=== PATIENT | male | born 1965 | race Caucasian/White ===

== ENCOUNTER → 2018-02-08 07:33 | Outpatient (CLI) | payer MEDICAID, SELFPAY ==
[2018-02-08 08:09] LABS: Abs Immature Grans 0.01 k/cumm (0.0-0.09); Absolute Basophil Count 0.02 k/cumm (0.0-0.2); Absolute Lymphocyte Count 3.34 k/cumm (1.2-3.4); Absolute Monocyte Count 0.95 k/cumm (0.11-0.7); Absolute Neutrophil Count 4.66 k/cumm (1.2-6.7); Basophils % 0.2; Eosinophils % 4.3; HCT 35.4 % (40.0-50.0); HGB 12.5 g/dL (13.5-17.5); Immature Grans % 0.1; Lymphocytes % 35.6; Mean Corp. HGB Concentration 35.3 g/dL (32.0-36.0); Mean Corpuscular Hemoglobin 33.1 pg (27.0-33.0); Mean Corpuscular Volume 93.7 fL (80-95); Mean Platelet Volume 10.8 fL (8.0-11.0); Monocytes % 10.1; Neutrophils % 49.7; Platelet Count 287 x1000/uL (130-400); RBC 3.78 m/cumm (4.50-6.00); RBC Distribution Width 13.4 % (11.8-14.1); White Blood Cell Count 9.38 k/cumm (4.4-10.8)
[2018-02-08 08:19] LABS: VALPROIC ACID 32.3 ug/mL (50-100)
[2018-02-08 09:01] LABS: ALT 26 U/L (12-78); AST 22 U/L (15-37); Albumin 3.7 g/dL (3.4-5.0); Alkaline Phosphatase 92 U/L (46-116); BUN 14 mg/dL (7-18); Bilirubin, Total 0.5 mg/dL (0.2-1.0); CREATININE 0.96 mg/dL (0.70-1.30); Calcium 8.6 mg/dL (8.5-10.1); Chloride 102 mmol/L (98-107); Glucose 123 mg/dL (70-100); Potassium 3.7 mmol/L (3.5-5.1); Sodium 138 mmol/L (136-145); TSH 1.02 uIU/mL (0.358-3.74); Total Protein 6.7 g/dL (6.4-8.2)
== END ==
PROVIDERS: Dermatology; PCP Nurse Practitioner Family; Visit Provider Nurse Practitioner Psychiatric/Mental Health
DX: G62.9 Polyneuropathy, unspecified (principal); T78.40XA Allergy, unspecified, initial encounter; Z85.038 Personal history of other malignant neoplasm of large intestine; F10.10 Alcohol abuse, uncomplicated
CPT/HCPCS: 36415; 80053; 80164; 84443; 85025

== ENCOUNTER → 2018-02-14 09:04 | Outpatient (REF) | payer MEDICAID, SELFPAY ==
[2018-02-17 16:21] LABS: Coproporphyrin, Tetra 329 nmol/24h (<=230); Urine Volume 1825 mL; Uroporphyrin, Octa 30 nmol/24h (<=30)
== END ==
LOC: LBN 09:04
PROVIDERS: PCP Nurse Practitioner Family; Visit Provider Dermatology
DX: T78.40XA Allergy, unspecified, initial encounter (principal); Z85.038 Personal history of other malignant neoplasm of large intestine; G62.9 Polyneuropathy, unspecified
CPT/HCPCS: 81050; 84110; 84120

== ENCOUNTER 2018-03-31 19:02 | Outpatient (REF) | payer MEDICAID, SELFPAY ==
[2018-03-31 20:02] LABS: BUN 19 mg/dL (7-18); Calcium 9.1 mg/dL (8.5-10.1); Chloride 103 mmol/L (98-107); Glucose 106 mg/dL (70-100); Potassium 4.5 mmol/L (3.5-5.1); Sodium 139 mmol/L (136-145)
== END 2018-03-31 19:22 ==
LOC: NCHCN 19:02
PROVIDERS: PCP Nurse Practitioner Family; Visit Provider Nurse Practitioner Family
DX: R25.2 Cramp and spasm (principal); M51.17 Intervertebral disc disorders with radiculopathy, lumbosacral region; G43.919 Migraine, unspecified, intractable, without status migrainosus; M54.9 Dorsalgia, unspecified
CPT/HCPCS: 80048

== ENCOUNTER 2018-04-12 19:06 | Outpatient (REF) | payer MEDICAID, SELFPAY ==
[2018-04-12 20:03] LABS: Absolute Basophil Count 0.04 k/cumm (0.0-0.2); Absolute Eosinophil Count 0.31 k/cumm (0.0-0.7); Absolute Lymphocyte Count 2.14 k/cumm (1.2-3.4); Absolute Monocyte Count 0.64 k/cumm (0.11-0.7); Basophils % 0.8; Eosinophils % 5.8; HCT 35.6 % (40.0-50.0); HGB 12.7 g/dL (13.5-17.5); Lymphocytes % 40.2; Mean Corp. HGB Concentration 35.7 g/dL (32.0-36.0); Mean Corpuscular Hemoglobin 33.2 pg (27.0-33.0); Mean Corpuscular Volume 93.2 fL (80-95); Mean Platelet Volume 11.4 fL (8.0-11.0); Neutrophils % 41.2; Platelet Count 321 x1000/uL (130-400); RBC 3.82 m/cumm (4.50-6.00); RBC Distribution Width 12.7 % (11.8-14.1); White Blood Cell Count 5.33 k/cumm (4.4-10.8)
[2018-04-12 20:21] LABS: ALT 19 U/L (12-78); AST 16 U/L (15-37); Albumin 3.8 g/dL (3.4-5.0); Alkaline Phosphatase 111 U/L (46-116); Anion Gap 8.6 mmol/L (3-11); BUN 14 mg/dL (7-18); Bilirubin, Total 0.3 mg/dL (0.2-1.0); CO2 26.4 mmol/L (21.0-32.0); CREATININE 0.74 mg/dL (0.70-1.30); Calcium 8.9 mg/dL (8.5-10.1); Chloride 101 mmol/L (98-107); Glucose 95 mg/dL (70-100); Potassium 4.7 mmol/L (3.5-5.1); Sodium 136 mmol/L (136-145)
== END 2018-04-12 19:26 ==
LOC: NCHCN 19:06
PROVIDERS: PCP Nurse Practitioner Family; Visit Provider Nurse Practitioner Family
DX: R11.2 Nausea with vomiting, unspecified (principal)
CPT/HCPCS: 80053; 80164; 85025

== ENCOUNTER 2018-04-17 14:43 | Outpatient (CLI) | payer MEDICAID, SELFPAY ==
[2018-04-17 15:12] LABS: Abs Immature Grans 0.01 k/cumm (0.0-0.09); Absolute Basophil Count 0.04 k/cumm (0.0-0.2); Absolute Lymphocyte Count 2.36 k/cumm (1.2-3.4); Absolute Monocyte Count 0.57 k/cumm (0.11-0.7); Absolute Neutrophil Count 3.26 k/cumm (1.2-6.7); Basophils % 0.6; Eosinophils % 3.1; HCT 38.9 % (40.0-50.0); HGB 13.9 g/dL (13.5-17.5); Immature Grans % 0.2; Lymphocytes % 36.6; Mean Corp. HGB Concentration 35.7 g/dL (32.0-36.0); Mean Corpuscular Hemoglobin 32.9 pg (27.0-33.0); Mean Platelet Volume 10.2 fL (8.0-11.0); Monocytes % 8.9; Neutrophils % 50.6; Platelet Count 292 x1000/uL (130-400); RBC 4.23 m/cumm (4.50-6.00); RBC Distribution Width 12.6 % (11.8-14.1); White Blood Cell Count 6.44 k/cumm (4.4-10.8)
[2018-04-17 16:17] LABS: Iron 52 ug/dL (50-175); Total Iron Binding Capacity 263 ug/dL (250-450); Transferrin Sat 20 % (20-55)
[2018-04-17 16:44] LABS: Bilirubin, Total 0.4 mg/dL (0.2-1.0); Ferritin 55 ng/mL (8-388)
[2018-04-17 16:56] LABS: LDH 176 U/L (85-227)
[2018-04-18 11:11] LABS: Haptoglobin 142 mg/dL (32-197)
== END 2018-04-17 15:03 ==
PROVIDERS: PCP Nurse Practitioner Family; Visit Provider Nurse Practitioner Family
DX: R89.9 Unspecified abnormal finding in specimens from other organs, systems and tissues (principal)
CPT/HCPCS: 36415; 85027; 82247; 82728; 83010; 83540; 83550; 83615; 85025

== ENCOUNTER 2018-12-25 02:47 | Outpatient (CLI) | payer MEDICAID, SELFPAY | END 2018-12-25 03:07 | PROVIDERS: PCP Nurse Practitioner Family; Visit Provider Nurse Practitioner Family | DX: F90.2 Attention-deficit hyperactivity disorder, combined type (principal); Z79.899 Other long term (current) drug therapy; I49.3 Ventricular premature depolarization | CPT/HCPCS: 93005; 93010 ==

== ENCOUNTER 2019-03-15 10:38 | Outpatient (REF) | payer MEDICAID, SELFPAY ==
[2019-03-15 22:00] LABS: Abs Immature Grans 0.02 k/cumm (0.0-0.09); Absolute Basophil Count 0.05 k/cumm (0.0-0.2); Absolute Eosinophil Count 0.77 k/cumm (0.0-0.7); Absolute Lymphocyte Count 2.32 k/cumm (1.2-3.4); Absolute Monocyte Count 0.73 k/cumm (0.11-0.7); Basophils % 0.5; Eosinophils % 7.1; HCT 39.3 % (40.0-50.0); HGB 13.5 g/dL (13.5-17.5); Immature Grans % 0.2; Lymphocytes % 21.3; Mean Corp. HGB Concentration 34.4 g/dL (32.0-36.0); Mean Corpuscular Volume 93.1 fL (80-95); Mean Platelet Volume 11.4 fL (8.0-11.0); Monocytes % 6.7; Neutrophils % 64.2; Platelet Count 327 x1000/uL (130-400); RBC 4.22 m/cumm (4.50-6.00); RBC Distribution Width 12.7 % (11.8-14.1); White Blood Cell Count 10.89 k/cumm (4.4-10.8)
[2019-03-15 22:04] LABS: Absolute Neutrophil Count 6.99 k/cumm (1.2-6.7)
[2019-03-15 22:12] LABS: Iron 79 ug/dL (50-175)
[2019-03-15 22:30] LABS: Anion Gap 7.3 mmol/L (3-11); BUN 17 mg/dL (7-18); CO2 27.7 mmol/L (21.0-32.0); CREATININE 0.91 mg/dL (0.70-1.30); Calcium 9.5 mg/dL (8.5-10.1); Chloride 103 mmol/L (98-107); Ferritin 55 ng/mL (8-388); Glucose 77 mg/dL (70-100); Magnesium 2.1 mg/dL (1.8-2.4); Potassium 4.9 mmol/L (3.5-5.1); Sodium 138 mmol/L (136-145)
== END 2019-03-15 10:58 ==
LOC: NCHCN 10:38
PROVIDERS: PCP Nurse Practitioner Family; Visit Provider Nurse Practitioner Family
DX: R89.9 Unspecified abnormal finding in specimens from other organs, systems and tissues (principal); R25.2 Cramp and spasm; G47.00 Insomnia, unspecified; G47.33 Obstructive sleep apnea (adult) (pediatric)
CPT/HCPCS: 80048; 82728; 83540; 83735; 85025

== ENCOUNTER 2019-05-23 01:40 | Outpatient (CLI) | payer MEDICAID, SELFPAY ==
[2019-05-23] MEDS: Albuterol HFA 18 GM 200 PUFF INH IH (15:24)
[2019-05-23] MEDS: Inhaler, Assist Device 1 EACH MC (15:24)
--- NOTE | 2019-05-24 08:54 | PFT_ITS ---
DATE OF SERVICE: May 23, 2019 REQUESTING PROVIDER: Alexus Nguyen N.P. Spirometry shows mild obstructive airways disease with no significant bronchodilator response. Lung volumes show no evidence of restriction. Diffusion capacity is normal. Airways resistance is normal. IMPRESSION: Mild obstructive airways disease with no significant bronchodilator response. Clinical correlation recommended.
== END 2019-05-23 02:00 ==
PROVIDERS: PCP Nurse Practitioner Family; Visit Provider Nurse Practitioner Family
DX: R06.02 Shortness of breath (principal); F17.210 Nicotine dependence, cigarettes, uncomplicated
CPT/HCPCS: 94060; 94150; 94726; 94729

== ENCOUNTER 2019-09-21 07:37 | Emergency (ER) | payer MEDICAID, SELFPAY ==
[2019-09-21] VITALS (16 sets, daily range): BP systolic 111–161; BP diastolic 69–91; PULSE 52–70; RESP 1–23; TEMP 36.5–36.9; O2SAT 95–100
--- NOTE | 2019-09-21 08:15 | DI.RAD_ITS ---
EXAM: XR CHEST 2V PA LATERAL CLINICAL HISTORY: cough, sob, r/o pneumonia TECHNIQUE: COMPARISON: PORTABLE CHEST ONE VIEW from 11/01/2014 FINDINGS: The heart is not enlarged. Mild changes of pulmonary scarring noted. No focal consolidation. No pl eural effusion. IMPRESSION: No evidence of acute process.
--- NOTE | 2019-09-21 08:19 | ED.GENADUL_ITS ---
Discharge Plan Disposition Patient Disposition: HOME Condition: Improving Discharge Details Chief Complaint: SOB Clinical Impression: Acute bronchitis, Uvulitis Primary Care Provider: Alexus Nguyen ED Provider: Nancy Salcido Home Meds and New Rx's Prescriptions: New prednisone 20 mg tablet See Rx Instructions .ROUTE .COMPLEX Qty: 12 RF: 0 albuterol sulfate 90 mcg/actuation aerosol powdr breath activated 2 inh IH Q6H PRN (Reason: shortness of breath or wheezing) Qty: 1 RF: 0 amoxicillin-pot clavulanate [Augmentin] 875-125 mg tablet 1 tab PO BID 10 Days Qty: 20 RF: 0 Continued omeprazole 40 MG capsule,delayed release(DR/EC) 40 mg PO DAILY Qty: 90 RF: 4 polyethylene glycol 3350 [Miralax] 17 GM powder in packet 17 g PO DAILY PRNQty: 255 RF: 0 docusate sodium [Colace] 100 MG capsule 100 mg PO DAILY RF: 0 trazodone 50 mg Tablet 50 mg PO QHS RF: 0 fluoxetine 10 mg Capsule 10 mg PO DAILY RF: 0 Discharge Instructions Instructions: Pharyngitis (ED), Acute Bronchitis (ED) Additional Instructions: Take the antibiotics and steroids until finished. Use the albuterol inhaler as needed and directed. Follow-up with your primary care doctor in 1 week. Return to the emergency department with any worsening or new concerning symptoms. Stand Alone Forms: Work Release Discharge Data Discharge Physician: Nancy Salcido Medical Decision Making [id number] -- 53-year-old male with a history of anxiety, bipolar disorder, seizures, previous history of prescription drug abuse now on methadone, tobacco smoker and daily alcohol use who presents with cough with yellow sputum, shortness of breath, chest pressure and decreased appetite over the past week. He was sent from the [facility] clinic for evaluation. Vitals within normal limits. Patient appears nontoxic. No signs of acute re spiratory distress. He is speaking in full sentences. He has scattered wheezing throughout, worse in the upper lobes. No rhonchi or crackles. No lower extremity edema. He has moderate uvular edema and posterior pharyngeal erythema but no exudates. Differential diagnosis includes acute bronchitis, pneumonia, uvulitis. History and presentation not consistent with influenza or coronavirus as there is no reported fever or recent travel with main complaint of cough with minimal shortness of breath. Will give a DuoNeb, p.o. steroids and refer for chest x- ray. 929 --chest x-ray reviewed and negative. Patient reassessed -he feels better. Increase in wheezing and coarse breath sounds to left chest. He was offered another neb treatment but declined. Vitals within normal limits. Breathing comfortably. As patient is a smoker and has uvular edema, will treat with antibiotics and steroids. Advised to follow up with the primary care doctor for re-evaluation. Usual and customary return precautions given prior to discharge. Medical Records Medical records reviewed: Yes I reviewed the patient's medical records. Imaging Data Radiologic Study: Radiologist's impression: XR CHEST 2V PA LATERAL CLINICAL HISTORY: cough, sob, r/o pneumonia TECHNIQUE: COMPARISON: PORTABLE CHEST ONE VIEW from 11/01/2014 FINDINGS: The heart is not enlarged. Mild changes of pulmonary scarring noted. No focal consolidation. No pleural effusion. IMPRESSION: No evidence of acute process. ECG Data Attestation: I personally reviewed and interpreted this ECG (s) as follows: Interpretation: rate of 55bpm, no acute ST elevation or depression. [place] 200. QTc 440. QRS 100. HPI General Mode of arrival: ambulatory . Date/Time Provider Initiated Documentation: 09/21/19 07:58 . Limitations to Documentation: no limitations . Information obtained by: patient . HPI Narrative: Patient is a 53-year-old male with a history of anxiety, bipolar disorder, daily tobacco smoker and alcohol drinker who presents with cough with yellow sputum, shortness of breath and chest pressure with coughing over the past week. Admits to decreased appetite and generally feeling unwell. Admits to a feeling of swelling in his throat with swallowing but denies any sore throat or pain with swallowing. Denies any fever, recent travel or exposure to recent travel. Related Data Home Medications Medication Instructions Recorded Confirmed omeprazole 40 mg PO DAILY #90 tab-cap 11/04/15 09/21/19 docusate sodium [Colace] 100 mg PO DAILY tab-cap 09/12/17 09/21/19 polyethylene glycol 3350 [Miralax] 17 g PO DAILY PRN #255 gm 09/12/17 09/21/19 albuterol sulfate 2 inh IH Q6H PRN #1 each 09/21/19 amoxicillin-pot clavulanate 1 tab PO BID 10 Days #20 tab 09/21/19 [Augmentin] fluoxetine 10 mg PO DAILY 09/21/19 09/21/19 prednisone See Rx Instructions .ROUTE 09/21/19 .COMPLEX #12 tab trazodone 50 mg PO QHS 09/21/19 09/21/19 Previous Rx's Medication Instructions Recorded albuterol sulfate 2 inh IH Q6H PRN #1 each 09/21/19 amoxicillin-pot clavulanate 1 tab PO BID 10 Days #20 tab 09/21/19 [Augmentin] prednisone See Rx Instructions .ROUTE 09/21/19 .COMPLEX #12 tab Allergies Allergy/AdvReac Type Severity Reaction Status Date / Time Gadolinium-Containing Allergy Severe Anaphylaxis Unverified 09/21/19 08:41 Contrast Medi Sulfa (Sulfonamide Allergy Severe CAN'T Unverified 09/21/19 08:41 Antibiotics) BREATHE codeine Allergy Mild RASH; GI Unverified 09/21/19 08:41 UPSET acetaminophen AdvReac Intermediate anxiety Unverified 09/21/19 08:41 gadopentetate dimeglumine AdvReac SEIZURE Unverified 09/21/19 08:41 [From [facility]] General Stated Complaint: SOB MARTY: 2 Review of Systems All systems reviewed & are unremarkable except as noted in HPI and below Constitutional Constitutional: Reports as per HPI, Denies chills and Denies fever(s) Eyes Eyes: Denies blurry vision ENT Ears, Nose, Mouth, and Throat: Denies dizziness, Denies sore throat and Denies throat swelling Cardiovascular Cardiovascular: Reports dyspnea and Reports other (chest pressure worse with coughing) Respiratory Respiratory: Reports cough and Reports dyspnea Gastrointestinal Gastrointestinal: Denies abdominal pain, Denies diarrhea and Denies vomiting Genitourinary Genitourinary: Denies hematuria and Denies dysuria Musculoskeletal Musculoskeletal: Denies back pain and Denies numbness Integumentary/Breasts Skin/Breast: Denies lesions and Denies rash Neurologic Neurologic: Denies dizziness, Denies localized weakness and Denies numbness Allergic/Immunologic Allergic/Immunologic: Denies throat swelling [facility] Medical History (Updated 09/21/19 @ 09:29 by Nancy Salcido DO) Alcohol abuse Anxiety disorder Bipolar disorder Constipation, chronic Convulsions Excoriated acne GERD (gastroesophageal reflux disease) Leg cramp Migraine, intractable Opioid abuse Seizures SOB (shortness of breath) Tobacco abuse Surgical History (Updated 04/19/18 @ 14:36 by [employer] [place]) Colonoscopy - MAC (09/12/17) Tonsillectomy and adenoidectomy Social History Smoking/Tobacco Use Status: Current every day Tobacco Type: cigarettes Alcohol Intake: current Alcohol Intake frequency: 3 or more drinks per day Alcohol type: beer Drug use: Daily Substance use type: marijuana Do you feel safe at home: Yes Exam Const General: cooperative, healthy appearing and no acute distress [facility] Head: normal to inspection Ears: hearing grossly normal bilaterally, external ears normal and TM's normal bilaterally Face and sinus: normal facial exam Mouth: oral mucosae normal Throat: uvula midline, no peritonsillar masses, posterior oropharynx abnormal erythema; no exudates and uvular edema (Moderate) Eyes General: appearance normal, both eyes and all related structures EOM: EOM intact bilaterally Neck Neck: normal visual inspection, no meningeal signs, trachea midline, supple and No submandibular swelling Lymphatic: no lymphadenopathy noted Chest Chest: normal inspection of the chest and no tenderness Resp Effort & Inspection: normal respiratory effort and able to speak in complete sentences Auscultation: wheezes scattered wheezes Cardio Rate: regular rate Rhythm: regular rhythm GI Inspection: normal to inspection Palpation: soft, not firm, not rigid and nontender Auscultation: normal bowel sounds Skin General skin exam: no rashes or lesions noted Neuro General: patient alert, patient awake and patient oriented x3 Cognition: normal cognition Speech: speech normal Motor: muscle tone normal throughout Sensory Exam: no sensory deficits noted Extrem General: normal to inspection, full ROM, capillary refill normal, no calf tenderness bilaterally and no edema Psych Appearance: grossly normal Mental Status: mental status grossly normal Speech and Movement: speech and movement normal Affect: normal affect Course Vital Signs Vital signs: Vital Signs Temperature 97.7 F 09/21/19 07:44 Pulse 69 09/21/19 07:44 Respiratory Rate 18 09/21/19 07:44 Blood Pressure 113/74 09/21/19 07:44 Pulse Oximetry 99 09/21/19 07:44 Temperature 97.7 F 09/21/19 07:44 Temperature Source Skin 09/21/19 07:44 Pulse 69 09/21/19 07:44 Respiratory Rate 14 09/21/19 07:50 Respiratory Effort Non-Labored 09/21/19 07:50 Respiratory Depth Normal 09/21/19 07:50 Respiratory Pattern Normal 09/21/19 07:50 Blood Pressure 113/74 09/21/19 07:44 Blood Pressure Position Supine 09/21/19 07:44 Pulse Oximetry 99 09/21/19 07:44 Oxygen Delivery Method Room Air 09/21/19 07:44 Oxygen Flow Rate 0 09/21/19 07:44 Pain Level 4 09/21/19 07:50 Comment 09/21/19 07:44
[2019-09-21] MEDS: Albuterol/Ipratropium 3 ML UPD VIAL UPD (08:41)
[2019-09-21] MEDS: predniSONE 20 MG TAB 60 MG PO (08:42)
== END 2019-09-21 09:51 | disposition home or self-care (01) ==
LOC: ER 09:52
PROVIDERS: Emergency Provider Physician Assistant; PCP Nurse Practitioner Family
DX: J20.8 Acute bronchitis due to other specified organisms (principal); K12.2 Cellulitis and abscess of mouth; F17.210 Nicotine dependence, cigarettes, uncomplicated
CPT/HCPCS: 93005; 94640; 99284; 71046; 93010; J7512; J7620

== ENCOUNTER 2020-05-19 10:19 | Outpatient (REF) | payer MEDICAID, SELFPAY ==
[2020-05-19 19:14] LABS: Abs Immature Grans 0.01 10^3/uL (0.0-0.06); Absolute Basophil Count 0.05 10^3/uL (0.0-0.2); Absolute Eosinophil Count 0.25 10^3/uL (0.0-0.7); Absolute Lymphocyte Count 1.58 10^3/uL (1.2-3.4); Absolute Monocyte Count 0.52 10^3/uL (0.1-0.8); Eosinophils % 4.9; HCT 42.1 % (40.0-50.0); HGB 14.7 g/dL (13.5-17.5); Immature Grans % 0.2; Lymphocytes % 30.9; MCH 32.7 pg (27.0-33.0); MCHC 34.9 % (32.0-36.0); MCV 93.6 fL (80-95); MPV 11.7 fL (8.0-11.0); Monocytes % 10.2; Neutrophils % 52.8; Nucleated RBC 0 %; Platelet Count 295 10^3/uL (130-400); RDW-SD 41.7 fL; WBC 5.11 10^3/uL (4.4-10.8)
[2020-05-19 19:30] LABS: ALT 21 U/L (16-63); AST 18 U/L (15-37); Alkaline Phosphatase 107 U/L (46-116); Anion Gap 8.4 mmol/L (3-11); BUN 15 mg/dL (7-18); Bilirubin, Total 0.3 mg/dL (0.2-1.0); CO2 27.6 mmol/L (21.0-32.0); CREATININE 0.98 mg/dL (0.70-1.30); Calcium 9.2 mg/dL (8.5-10.1); Chloride 102 mmol/L (98-107); Glucose 99 mg/dL (74-106); HDL Cholesterol 80 mg/dL (40-60); LDL CHOLESTEROL 77 mg/dL (<100); Potassium 4.5 mmol/L (3.5-5.1); Sodium 138 mmol/L (136-145); Total Protein 7.6 g/dL (6.4-8.2)
[2020-05-19 22:28] LABS: Amylase 122 U/L (25-115); Lipase 318 U/L (73-393)
== END 2020-05-19 10:39 ==
LOC: NCHCN 10:19
PROVIDERS: PCP Nurse Practitioner Family; Visit Provider Nurse Practitioner Family
DX: F41.1 Generalized anxiety disorder (principal); R63.4 Abnormal weight loss; R11.2 Nausea with vomiting, unspecified; Z00.00 Encounter for general adult medical examination without abnormal findings
CPT/HCPCS: 80053; 83690; 83721; 82150; 83718; 85025

== ENCOUNTER 2020-06-23 19:55 | Outpatient (REF) | payer MEDICAID, SELFPAY ==
[2020-06-23 20:03] LABS: Iron 134 ug/dL (65-175)
[2020-06-23 20:26] LABS: Vitamin D 25 Total 32.4 ng/ml (30-100)
[2020-06-23 20:30] LABS: Ferritin 71 ng/mL (26-388); Magnesium 1.9 mg/dL (1.8-2.4); Vitamin B12 693 pg/mL (193-986)
== END 2020-06-23 20:15 ==
LOC: NCHCN 19:55
PROVIDERS: PCP Nurse Practitioner Family; Visit Provider Nurse Practitioner Family
DX: G47.00 Insomnia, unspecified (principal); G47.33 Obstructive sleep apnea (adult) (pediatric); G25.81 Restless legs syndrome
CPT/HCPCS: 82306; 82607; 82728; 83540; 83735

== ENCOUNTER 2020-08-21 16:11 | Outpatient (REF) | payer MEDICAID, SELFPAY ==
[2020-08-22 15:30] LABS: COVID-19 RT-PCR UVMMC Result Negative (Negative)
== END 2020-08-21 16:12 | disposition home or self-care (01) ==
LOC: NCHCN 16:11
PROVIDERS: PCP Nurse Practitioner Family; Visit Provider Nurse Practitioner Family
DX: J02.9 Acute pharyngitis, unspecified (principal); R05 Cough
CPT/HCPCS: U0003

== ENCOUNTER 2021-01-21 11:27 | Outpatient (REF) | payer MEDICAID, SELFPAY ==
[2021-01-21 14:55] LABS: Absolute Basophil Count 0.04 10^3/uL (0.0-0.2); Absolute Eosinophil Count 0.32 10^3/uL (0.0-0.7); Absolute Lymphocyte Count 1.53 10^3/uL (1.2-3.4); Absolute Monocyte Count 0.62 10^3/uL (0.1-0.8); Absolute Neutrophil Count 1.96 10^3/uL (1.2-6.7); Basophils % 0.9; Eosinophils % 7.2; HCT 39.1 % (40.0-50.0); HGB 13.5 g/dL (13.5-17.5); Lymphocytes % 34.2; MCH 32.5 pg (27.0-33.0); MCHC 34.5 % (32.0-36.0); MCV 94.2 fL (80-95); MPV 10.9 fL (8.0-11.0); Monocytes % 13.9; Neutrophils % 43.8; Nucleated RBC 0 %; Platelet Count 303 10^3/uL (130-400); RBC 4.15 10^6/uL (4.36-5.78); RDW 12.1 % (11.8-14.1); RDW-SD 41.9 fL; WBC 4.47 10^3/uL (4.4-10.8)
[2021-01-21 15:03] LABS: ESR 12 mm/hr (0-20)
[2021-01-21 15:22] LABS: ALT 20 U/L (16-63); AST 20 U/L (15-37); Albumin 3.8 g/dL (3.4-5.0); Alkaline Phosphatase 91 U/L (46-116); Anion Gap 5.8 mmol/L (3-11); BUN 14 mg/dL (7-18); Bilirubin, Total 0.5 mg/dL (0.2-1.0); CO2 31.2 mmol/L (21.0-32.0); CREATININE 0.9 mg/dL (0.70-1.30); Calcium 9.1 mg/dL (8.5-10.1); Chloride 103 mmol/L (98-107); Glucose 95 mg/dL (74-106); Potassium 4.4 mmol/L (3.5-5.1); Sodium 140 mmol/L (136-145); TSH 0.45 uIU/mL (0.36-3.74); Total Protein 7.2 g/dL (6.4-8.2)
[2021-01-21 15:26] LABS: C-Reactive Protein < 0.05 mg/dL (0.0-0.3)
== END 2021-01-21 11:28 | disposition home or self-care (01) ==
LOC: NCHCN 11:27
PROVIDERS: PCP Nurse Practitioner Family; Visit Provider Nurse Practitioner Family
DX: R63.4 Abnormal weight loss (principal)
CPT/HCPCS: 80053; 85652; 84443; 85025; 86140

== ENCOUNTER 2021-02-06 04:06 | Outpatient (CLI) | payer MEDICAID, SELFPAY ==
--- NOTE | 2021-02-06 | DI.RAD_ITS ---
Exam(s) XR TOE RT FOURTH EXAM: XR TOE RT FOURTH CLINICAL HISTORY: RT TOE PAIN, M79.674,H/O FALL,SWELLING TECHNIQUE: COMPARISON: No exams were available for comparison FINDINGS: Four views were obtained. There is a comminuted mid shaft fracture of the proximal phalanx of the 4t h toe with moderate displacement. There is question of periosteal new bone formation, I would query whether this is a subacute fracture. No other fracture seen. IMPRESSION: RADIATION DOSE DELIVERED: Total DLP
--- NOTE | 2021-02-06 | DI.CT_ITS ---
Exam(s) CT CHEST/ABD/PEL W EXAM: CT CHEST/ABD/PEL W CLINICAL HISTORY: UNINTENTIONAL WT LOSS, R63.4,SMOKER,EXCESSIVE ALCOHOL USE TECHNIQUE: Imaging Protocol: Axial computed tomography images with coronal and sagittal reformatted images were created and reviewed CONTRAST MATERIAL: Intravenous: Omnipaque 350 Contrast volume:100 mL Oral: Yes COMPARISON: CT CHEST WITH CONTRAST from 10/16/2010 FINDINGS: CHEST: Tracheobronchial tree: Patent where visualized. Pulmonary parenchyma: No consolidation or dominant measurable mass. Mild centrilobular emphysema. Visualized thyroid gland: Unremarkable. Mediastinum and Gayathri: No dominant adenopathy or fluid collection. Pleura: No effusion or pneumothorax. Heart: The heart is not dilated. No coronary artery calcifications are seen. No pericardial effusion. Aorta: Thoracic aorta non-dilated. Mild atherosclerosis. Lymph nodes: Within normal limits. Soft tissues: Unremarkable. Bones:Degenerative changes are present in the spine. No aggressive osseous lesions are present. ABDOMEN: Liver: Normal density. No measurable mass. There is an area of decreased attenuation adjacent to the falciform ligament most consistent with focal fatty infiltration. Portal, Superior Mesenteric, and Splenic Veins: Unremarkable. Gallbladder and Biliary Tract: No radiodense calculus or dilation. Pancreas: Normal density, no abnormal calcifications or inflammatory process. Spleen: Normal. Adrenals: No masses seen. Kidneys: Normal size, contour and axis. No radiodense stones or obstructive uropathy. No masses seen. Abdominal Aorta: Abdominal portion non-dilated. Atherosclerosis. Bowel: No obstruction or bowel wall thickening. No appendicitis. Peritoneal Cavity: No ascites, collection or mesenteric inflammatory response. No free air. Lymph Nodes: Within normal limits. Bones: Degenerative changes are seen in the spine. No aggressive osseous lesions are present. Soft Tissues: Unremarkable. PELVIS: Bladder: Symmetric distention, no gross wall thickening. Reproductive Organs: Mildly enlarged prostate gland. Lymph Nodes: Within normal limits. Bones: Degenerative changes in the spine. No aggressive osseous lesions are present. IMPRESSION: 1. No evidence of abdominopelvic mass or metastatic disease. 2. No pulmonary mass or metastatic disease. 3. Mild centrilobular emphysema. RADIATION DOSE DELIVERED: 982.86mGy.cm Total DLP DATA REPOSITORY: All CT scans at this facility are submitted to the National Radiology Data Registry (NRDR) Dose Index Registry (DIR) with the [employer] (A[employer]). RADIATION OPTIMIZATION: All CT scans at this facility use at least one of these dose optimization te chniques: automated exposure control; mA and/or kV adjustment per patient size (includes targeted exa ms where dose is matched to clinical indication); or iterative reconstruction.
[2021-02-06] MEDS: Breeza Beverage 473 ML BTL PO ×2 (07:22→07:23)
[2021-02-06] MEDS: Normal Saline - Diluent 50 ML VIAL IV (09:58)
[2021-02-06] MEDS: Omnipaque 350 MG/ML 100 ML BTL IV (09:58)
[2021-02-06] MEDS: Normal Saline Flush 10 ML SYR IVP (09:59)
== END 2021-02-06 04:26 ==
PROVIDERS: PCP Nurse Practitioner Family; Visit Provider Nurse Practitioner Family
DX: J43.9 Emphysema, unspecified (principal); R63.4 Abnormal weight loss; R22.41 Localized swelling, mass and lump, right lower limb; G89.11 Acute pain due to trauma; M79.674 Pain in right toe(s); F17.200 Nicotine dependence, unspecified, uncomplicated; Z72.89 Other problems related to lifestyle; W19.XXXA Unspecified fall, initial encounter
CPT/HCPCS: 74177; 71260; 73660; J3490

== ENCOUNTER 2021-03-24 16:02 | Outpatient (REF) | payer MEDICAID, SELFPAY ==
[2021-03-26 11:53] LABS: COVID-19 RT-PCR UVMMC Result Negative (Negative)
== END 2021-03-24 16:03 | disposition home or self-care (01) ==
LOC: NCHCN 16:02
PROVIDERS: PCP Nurse Practitioner Family; Visit Provider Nurse Practitioner Family
DX: Z20.822 Contact with and (suspected) exposure to COVID-19 (principal); R05 Cough
CPT/HCPCS: U0003

== ENCOUNTER 2021-08-17 20:45 | Outpatient (REF) | payer MEDICAID, SELFPAY ==
[2021-08-19 15:47] LABS: COVID-19 RT-PCR UVMMC Result Positive (Negative)
== END 2021-08-17 20:46 | disposition home or self-care (01) ==
LOC: NCHCN 20:45
PROVIDERS: PCP Nurse Practitioner Family; Visit Provider Nurse Practitioner Family
DX: H60.8X3 Other otitis externa, bilateral (principal); Z20.822 Contact with and (suspected) exposure to COVID-19
CPT/HCPCS: U0003

== ENCOUNTER 2021-11-26 12:27 | Outpatient (REF) | payer MEDICAID, SELFPAY ==
[2021-11-26 15:48] LABS: ALT 22 U/L (16-63); AST 14 U/L (15-37); Albumin 3.8 g/dL (3.4-5.0); Alkaline Phosphatase 136 U/L (46-116); Anion Gap 10.6 mmol/L (3-11); BUN 17 mg/dL (7-18); Bilirubin, Total 0.5 mg/dL (0.2-1.0); CO2 24.4 mmol/L (21.0-32.0); CREATININE 0.9 mg/dL (0.70-1.30); Calcium 8.7 mg/dL (8.5-10.1); Calculated LDL 72 mg/dL (<100); Chloride 103 mmol/L (98-107); Cholesterol 178 mg/dL (<200); Glucose 104 mg/dL (74-106); HDL Cholesterol 99 mg/dL (40-60); Potassium 4.4 mmol/L (3.5-5.1); Sodium 138 mmol/L (136-145); Total Protein 7.2 g/dL (6.4-8.2); Triglyceride 39 mg/dL (<150)
[2021-11-30 05:06] LABS: Vitamin D 25 Total 34.1 ng/mL (30-100)
== END 2021-11-26 12:28 | disposition home or self-care (01) ==
LOC: NCHCN 12:27
PROVIDERS: PCP Nurse Practitioner Family; Visit Provider Nurse Practitioner Family
DX: I70.90 Unspecified atherosclerosis (principal); G47.00 Insomnia, unspecified
CPT/HCPCS: 80053; 80061; 82306

== ENCOUNTER → 2021-12-11 00:20 | Outpatient (CLI) | payer MEDICAID, SELFPAY ==
--- NOTE | 2021-12-11 11:19 | DI.CTLCSR_ITS ---
Exam(s) CT CHEST LUNG CANCER SCREEN EXAM: CT CHEST LUNG CANCER SCREEN CLINICAL HISTORY: SCREENING FOR LUNG CA, CURRENT SMOKER, Z12.9 TECHNIQUE: Imaging Protocol: Axial computed tomography images with coronal and sagittal reformatted images were created and reviewed COMPARISON: CT CT CHEST/ABD/PEL W from 02/06/2021 FINDINGS: Tracheobronchial tree: Patent where visualized. Pulmonary parenchyma: No consolidation or dominant measurable mass. No architectural distortion. Lung Nodules: None. Mediastinum and Gayathri: No dominant adenopathy or fluid collection. The esophagus is unremarkable. Thyroid gland: Unremarkable. Lymph nodes: Unremarkable. Pleura: No effusion or pneumothorax. Heart: The heart is not dilated. Mild coronary artery calcification. No pericardial effusion. Aorta: Thoracic aorta non-dilated.Mild atherosclerosis. Upper abdomen: Unremarkable. Soft Tissues: Unremarkable. Bones: Within normal limits. IMPRESSION: No pulmonary nodules. Lung RADS Cat 1 - Negative: No nodules and definitely benign nodules Lung-RADS 1.0 CATEGORIES: Category 0 - Prior chest CT exam(s) being located for comparison. Category 1 - Annual screening in 12 months. No nodules or definitely benign nodules. Category 2 - Annual screening in 12 months. Benign appearance. Nodules with low likelihood of becomin g active cancer. Category 3 - 6-month follow-up. Probably benign. Short-term follow-up suggested. Nodules with low lik elihood of becoming active cancer. Category 4A - 3-month follow-up and CT/PET if >8 mm in size. Suspicious finding. Findings which requi re additional testing. Category 4B - Findings which require additional testing and tissue sampling. Suspicious finding. Category 4X - Category 3 or 4 nodules with additional features or imaging findings that increases the suspicion of malignancy. Modifier S- Potentially clinically significant finding. (Non lung cancer) RADIATION DOSE DELIVERED: 87.12mGy.cm Total DLP 1.84mGyCTDIvol 87.12mGy.cm Total DLP 1.84mGy CTDIvol DATA REPOSITORY: All CT scans at this facility are submitted to the National Radiology Data Registry (NRDR) Dose Index Registry (DIR) with the [employer] (ACR). RADIATION OPTIMIZATION: All CT scans at this facility use at least one of these dose optimization te chniques: automated exposure control; mA and/or kV adjustment per patient size (includes targeted exa ms where dose is matched to clinical indication); or iterative reconstruction.
== END ==
PROVIDERS: PCP Nurse Practitioner Family; Visit Provider Nurse Practitioner Family
DX: Z12.2 Encounter for screening for malignant neoplasm of respiratory organs (principal); F17.210 Nicotine dependence, cigarettes, uncomplicated
CPT/HCPCS: 71271

== ENCOUNTER 2023-12-02 20:24 | Emergency (ER) | payer MEDICAID, SELFPAY ==
[2023-12-02 20:25] VITALS: BP 216/120; PULSE 90; RESP 16; TEMP 36.6; O2SAT 97
[2023-12-02] MEDS: Fluorescein STRIPS 100/BOX 1 MG OP (20:41)
--- NOTE | 2023-12-02 21:00 | DI.CT_ITS ---
Exam(s) CT HEAD WO EXAM: CT HEAD WO CLINICAL HISTORY: rye eye pain hx of pineal region tumor, vomiting. TECHNIQUE: Imaging Protocol: Axial computed tomography images with coronal and sagittal reformatted images were created and reviewed COMPARISON: CT HEAD WITHOUT CONTRAST from 03/03/2015 FINDINGS: Ventricles and Extra axial spaces: Normal in size and morphology for the patient's age. Hemorrhage: None. Cerebral parenchyma: No evidence of an acute territorial infarct. Midline shift: None. Brainstem/Cerebellum: Normal. Calvarium: Normal. Visualized Paranasal sinuses/Mastoids: Clear. Soft Tissues: The right lacrimal gland appears enlarged compared to the prior exam examination and co mpared to the left lacrimal gland. There is also swelling of the infraorbital soft tissues. No foca l fluid collection is seen. The globes and extraocular muscles appear intact. The retro-orbital sof t tissues are unremarkable. The optic nerves appear symmetric and within normal limits in size. IMPRESSION: 1. No acute intracranial process. 2. Enlarged right lacrimal mole gland and right infraorbital soft tissue swelling. This may represen t an infectious or inflammatory process. MRI of the orbits without and with contrast should be consi dered for further evaluation. Unexpected findings RADIATION DOSE DELIVERED: 797.85mGy.cm Total DLP DATA REPOSITORY: All CT scans at this facility are submitted to the National Radiology Data Registry (NRDR) Dose Index Registry (DIR) with the [employer] (ACR). RADIATION OPTIMIZATION: All CT scans at this facility use at least one of these dose optimization te chniques: automated exposure control; mA and/or kV adjustment per patient size (includes targeted exa ms where dose is matched to clinical indication); or iterative reconstruction.
[2023-12-02] MEDS: Normal Saline 500 ML 1000 ML IV (21:25)
[2023-12-02] MEDS: Prochlorperazine 10 MG/2 ML VIAL 5 MG IVP (21:25)
[2023-12-02 21:27] LABS: Abs Immature Grans 0.03 10^3/uL (0.0-0.06); Absolute Basophil Count 0.03 10^3/uL (0.0-0.2); Absolute Eosinophil Count 0.03 10^3/uL (0.0-0.7); Absolute Lymphocyte Count 0.98 10^3/uL (1.2-3.4); Absolute Monocyte Count 0.44 10^3/uL (0.1-0.8); Absolute Neutrophil Count 7.43 10^3/uL (1.2-6.7); Basophils % 0.3 %; Eosinophils % 0.3 %; HCT 40.6 % (40.0-50.0); HGB 14.7 g/dL (13.5-17.5); Immature Grans % 0.3 %; MCH 33.6 pg (27.0-33.0); MCHC 36.2 % (32.0-36.0); MCV 93 fL (80-95); MPV 9.6 fL (8.0-11.0); Monocytes % 4.9 %; Neutrophils % 83.2 %; Platelet Count 290 10^3/uL (130-400); RBC 4.37 10^6/uL (4.36-5.78); RDW 11.8 % (11.8-14.1); RDW-SD 40.2 fL; WBC 8.94 10^3/uL (4.4-10.8)
[2023-12-02 21:43] LABS: ALT 35 U/L (16-63); AST 23 U/L (15-37); Albumin 4.4 g/dL (3.4-5.0); Alkaline Phosphatase 108 U/L (46-116); Anion Gap 11.1 mmol/L (3-11); BUN 15 mg/dL (7-18); Bilirubin, Total 0.5 mg/dL (0.2-1.0); CO2 25.9 mmol/L (21.0-32.0); CREATININE 0.8 mg/dL (0.70-1.30); Chloride 99 mmol/L (98-107); Estimated GFR 103.87 (mL/min/1.73m2); Glucose 125 mg/dL (74-106); Potassium 3.8 mmol/L (3.5-5.1); Sodium 136 mmol/L (136-145); Total Protein 8.4 g/dL (6.4-8.2)
[2023-12-02 22:19] VITALS: BP 207/108; PULSE 80; O2SAT 99
[2023-12-02] MEDS: fentaNYL 100 MCG/2 ML VIAL 75 MCG IVP (22:21)
--- NOTE | 2023-12-02 22:33 | DI.VRAD_ITS ---
PROCEDURE INFORMATION: Exam: CT Head Without Contrast Exam date and time: 12/02/2023 9:59 PM Age: 57 years old Clinical indication: Eye pain. HX of pineal region tumor, vomiting TECHNIQUE: Imaging protocol: Computed tomography of the head without contrast. COMPARISON: No relevant prior studies available. FINDINGS: Brain: Normal. No hemorrhage. Unremarkable white matter. No mass effect. Cerebral ventricles: No ventriculomegaly. Paranasal sinuses: Visualized sinuses are unremarkable. No fluid levels. Mastoid air cells: Visualized mastoid air cells are well aerated. Orbital cavities: The right lacrimal gland appears enlarged. The bilateral globes are intact. No significant retrobulbar inflammatory changes. Bones: Unremarkable. No acute fracture. Soft tissues: Subcutaneous/cutaneous edema noted in the right periorbital region. IMPRESSION: 1. No acute intracranial hemorrhage, mass effect or midline shift. 2. Mild right periorbital edema as described, with right lacrimal gland enlargement. No retrobulbar abnormality. Dictated and Authenticated by: Donna Chiang MD. Ordering:ERENDIRA Lowe MD
[2023-12-02] MEDS: Moxifloxacin 0.5% 3 ML BTL OD (22:55)
[2023-12-02] MEDS: Erythromycin Ophth Oint 3.5 GM TUBE OD (22:57)
[2023-12-02 23:17] VITALS: BP 178/97; PULSE 71; RESP 18; O2SAT 100
--- NOTE | 2023-12-02 23:36 | ED.GENADUL_ITS ---
Discharge Plan Disposition Patient Disposition: Home Discharge Details Clinical Impression: Abrasion, corneal, Increased intraocular pressure Primary Care Provider: Alexus Nguyen ED Provider: Chrissy Mcdonald Home Meds and New Rx's Prescriptions: No Action No Known Home Meds Discharge Instructions Instructions: Corneal Abrasion (ED) Additional Instructions: [place] [facility] [place], go in main entrance of [facility] and to office 4[address], the ophthalmology suite, you may walk in the door after knocking if it is unlocked if you cannot make the appt, please call [phone] Use of Vigamox drops every 8 hours and the erythromycin every 4-6 hours, apply an 8 inch strip You may use that tetracaine drops, but do not use more than 1 drop an hour as that can actually cause a cataract on the surface of your eye and you can lose your vision Take ibuprofen or Tylenol as needed for pain Should you develop acute change in your vision please go directly to [facility] or return here for reassessment, please note that we do not have ophthalmology at this hospital Referrals: Alexus Nguyen [Primary Care Provider] - HPI General Date/Time Provider Initiated Documentation: 12/02/23 20:34 . HPI Narrative: This 57-year-old male with complex medical history including a pineal cyst migraine headaches and seizures presents with report of right eye irritation which patient awoke with this morning. He denies any known trauma or substances to right eye. He states that his eye is tearing secondary to his discomfort and itching. He does not use contact lenses. He does wear corrective glasses. Denies history of similar symptoms in the past. Tenderness up-to-date. States he does have a migraine headache, states he frequently has headaches and this is not new for him. He does report he is vomited twice today. Related Data Home Medications Medication Instructions Recorded Confirmed Unknown [No Known Home Meds] 12/02/23 12/02/23 Allergies Allergy/AdvReac Type Severity Reaction Status Date / Time Gadolinium-Containing Allergy Severe Anaphylaxis Verified 12/02/23 20:28 Contrast Medi Sulfa (Sulfonamide Allergy Severe CAN'T Verified 12/02/23 20:28 Antibiotics) BREATHE codeine Allergy Mild RASH; GI Verified 12/02/23 20:28 UPSET acetaminophen AdvReac Intermediate anxiety Verified 12/02/23 20:28 gadopentetate dimeglumine AdvReac SEIZURE Verified 12/02/23 20:28 [From Magnevist] General Stated Complaint: EyeProblem MARTY: 3 Exam Narrative Exam Narrative: Alert and oriented 57-year-old male in acute distress from right eye irritation, right iris and pupil with what appears to be an extensive corneal abrasion which encompasses the entire iris and pupil. He has conjunctival injection, his intraocular pressure is 27.5 and that right eye and 29 in the left eye. Patient has no proptosis and pupils equal round reactive to light and accommodation, extraocular muscles intact, no meningismus, lungs clear to auscultation, cardiac rate rhythm regular, alert and oriented x 4, cranial nerves II through XII intact, ambulatory with steady gait, no obvious additional rashes or lesions. Course Vital Signs Vital signs: Vital Signs Temperature 36.6 C 12/02/23 20:25 Pulse 90 12/02/23 20:25 Respiratory Rate 16 12/02/23 20:25 Blood Pressure 216/120 H 12/02/23 20:25 Pulse Oximetry 97 12/02/23 20:25 Temperature 36.6 C 12/02/23 20:25 Temperature Source Temporal Artery Scan 12/02/23 20:25 Pulse 71 12/02/23 23:17 Respiratory Rate 18 12/02/23 23:17 Respiratory Effort Normal 12/02/23 20:29 Blood Pressure 178/97 H 12/02/23 23:17 Blood Pressure Position Supine 12/02/23 20:25 Pulse Oximetry 100 12/02/23 23:17 Oxygen Delivery Method Room Air 12/02/23 22:19 Oxygen Flow Rate 0 12/02/23 22:19 Pain Level 10 12/02/23 20:25 Lab/Test Results Lab/Test Results: Laboratory Tests Range/Units 12/02/23 21:21 WBC (4.4-10.8) 10^3/uL 8.94 RBC (4.36-5.78) 10^6/uL 4.37 Hgb (13.5-17.5) g/dL 14.7 Hct (40.0-50.0) % 40.6 MCV (80-95) fL 93 MCH (27.0-33.0) pg 33.6 H MCHC (32.0-36.0) % 36.2 H RDW (11.8-14.1) % 11.8 Plt Count (130-400) 10^3/uL 290 MPV (8.0-11.0) fL 9.6 Immature Gran % % 0.3 Neutrophils % % 83.2 Lymphocytes % % 11.0 Monocytes % % 4.9 Eosinophils % % 0.3 Basophils % % 0.3 Nucleated RBC % (0.0-0.3) % 0.0 Absolute Neutrophils (1.2-6.7) 10^3/uL 7.43 H Absolute Lymphocytes (1.2-3.4) 10^3/uL 0.98 L Absolute Monocytes (0.1-0.8) 10^3/uL 0.44 Absolute Eosinophils (0.0-0.7) 10^3/uL 0.03 Absolute Basophils (0.0-0.2) 10^3/uL 0.03 Sodium (136-145) mmol/L 136 Potassium (3.5-5.1) mmol/L 3.8 Chloride (98-107) mmol/L 99 Carbon Dioxide (21.0-32.0) mmol/L 25.9 Anion Gap (3-11) mmol/L 11.1 H BUN (7-18) mg/dL 15 Creatinine (0.70-1.30) mg/dL 0.8 Est GFR (CKD-EPI 2020) (mL/min/1.73m2) 103.87 Glucose (74-106) mg/dL 125 H Calcium (8.5-10.1) mg/dL 9.0 Total Bilirubin (0.2-1.0) mg/dL 0.5 AST (15-37) U/L 23 ALT (16-63) U/L 35 Alkaline Phosphatase (46-116) U/L 108 Total Protein (6.4-8.2) g/dL 8.4 H Albumin (3.4-5.0) g/dL 4.4 Medical Decision Making 57-year-old male presenting with likely extensive corneal abrasion to right eye, given the size and location of this corneal abrasion is certainly concerning for healing purposes and vision. At time of assessment, visual acuity in the affected eye was 2200 which is concerning, 20/25 in the unaffected eye. Patient was given 75 mg micrograms of fentanyl and fluorescein instilled for exam. He is feeling some mild improvement at time of reassessment. Of note, given his headache and blood pressure in addition to the report of the pineal cyst I did order CT which does not show evidence of significant acute abnormality per radiology interpretation my review. I spoke with Dr. Abdul, funeral driver at [facility] and she would like to evaluate the patient in the office tomorrow. Patient has an appointment at 10 AM for an assessment and she recommends initiating Vigamox and erythromycin ointment. Patient feels comfortable with this plan. Patient stable appearing blood work and is encouraged to have his blood pressure rechecked by his primary care physician close outpatient reassessment and follow-up with ophthalmology tomorrow at his scheduled appointment return precautions reviewed and patient expressed understanding Quality:SDOH Health Related Social Needs: No Data to Display PFSH All Active Problems (Updated 12/02/23 @ 22:53 by BASSAM Enrique) Increased intraocular pressure (Acute) Abrasion, corneal (Acute) Degenerative disc disease (Acute) Tobacco abuse (Acute) Alcohol abuse (Chronic) DELIA (obstructive sleep apnea) (Chronic) Atherosclerosis (Acute) Tubular adenoma of colon (Acute 09/12/17) Temporomandibular joint disorder (Acute 09/26/17) Spells of decreased attentiveness (Acute 11/12/14) Smoker (Acute) Peripheral neuralgia (Acute) Migraine headache without aura (Acute 11/12/14) Mass of pineal region (Acute 11/12/14) Low back pain (Acute) GERD (gastroesophageal reflux disease) (Acute 01/31/15) Epididymitis, right (Acute 01/29/16) Chronic migraine (Acute 11/12/14) Attention deficit hyperactivity disorder (Acute) Spondylosis of lumbar region without myelopathy or radiculopathy (Chronic) Fracture of tibia AND fibula (Acute 04/10/13) ORIF by Dr. Gaviria 04-10-2013 Medical History (Updated 12/02/23 @ 22:53 by BASSAM Enrique) Opioid abuse GERD (gastroesophageal reflux disease) Excoriated acne Seizures Leg cramp Migraine, intractable Bipolar disorder Anxiety disorder Constipation, chronic SOB (shortness of breath) Convulsions Surgical History (Updated 04/19/18 @ 14:36 by SonoPlot MS) Tonsillectomy and adenoidectomy Colonoscopy - MAC (09/12/17) Social History Smoking/Tobacco Use Status: Current every day Tobacco Type: cigarettes Smoking risk assessment performed?: Yes Alcohol Intake: current Alcohol Intake frequency: 3 or more drinks per day Alcohol type: beer Drug use: Daily Substance use type: marijuana Do you feel safe at home: Yes
--- NOTE | 2023-12-03 10:34 | NUR.NOTE ---
Nursing Note: [facility] ophthalmology ([facility]) called due to being unable to get ahold of the patient after receiving a referral from us yesterday. They were looking to see if we had any other numbers to contact him. The other number we had on file was provided
--- NOTE | 2023-12-05 12:38 | NUR.NOTE ---
[facility] called asking for the provider note from his last visit on 12/02/23. I printed the note and faxed it to them. Nursing Note:
== END 2023-12-02 23:19 | disposition home or self-care (01) ==
PROVIDERS: Emergency Provider Physician Assistant; PCP Nurse Practitioner Family
DX: S05.01XA Injury of conjunctiva and corneal abrasion without foreign body, right eye, initial encounter; X58.XXXA Exposure to other specified factors, initial encounter
CPT/HCPCS: 80053; 96361; 96374; 96375; 99284; 70450; 85025; 99285; J0780; J3010

== ENCOUNTER 2025-01-01 16:15 | Outpatient (REF) | payer MEDICAID, SELFPAY ==
[2025-01-01 16:02] LABS: Abs Immature Grans 0.01 10^3/uL (0.0-0.06); HCT 43.8 % (40.0-50.0); HGB 15.6 g/dL (13.5-17.5); Immature Grans % 0.3 %; MCH 33.8 pg (27.0-33.0); MCHC 35.6 % (32.0-36.0); MCV 95 fL (80-95); MPV 11.7 fL (8.0-11.0); Platelet Count 202 10^3/uL (130-400); RBC 4.62 10^6/uL (4.36-5.78); RDW 12.1 % (11.8-14.1); RDW-SD 42.5 fL; WBC 3.96 10^3/uL (4.4-10.8)
[2025-01-01 16:41] LABS: Hemoglobin A1C 5.1 % (<5.7)
[2025-01-01 16:59] LABS: ALT 25 U/L (16-63); AST 21 U/L (15-37); Albumin 3.8 g/dL (3.4-5.0); Alkaline Phosphatase 111 U/L (46-116); Anion Gap 7.4 mmol/L (3-11); BUN 15 mg/dL (7-18); Bilirubin, Total 0.7 mg/dL (0.2-1.0); CO2 26.6 mmol/L (21.0-32.0); Calcium 9.0 mg/dL (8.5-10.1); Calculated LDL 81 mg/dL (<100); Chloride 104 mmol/L (98-107); Cholesterol 175 mg/dL (<200); Estimated GFR 102.58 (mL/min/1.73m2); Glucose 105 mg/dL (74-106); HDL Cholesterol 83 mg/dL (>or=40); Potassium 4.5 mmol/L (3.5-5.1); Sodium 138 mmol/L (136-145); TSH 1.16 uIU/mL (0.36-3.74); Total Protein 7.0 g/dL (6.4-8.2); Triglyceride 57 mg/dL (<150)
== END 2025-01-01 16:16 | disposition home or self-care (01) ==
LOC: NCHCN 16:15
PROVIDERS: Visit Provider Family Medicine
DX: Z13.220 Encounter for screening for lipoid disorders (principal); Z13.1 Encounter for screening for diabetes mellitus; Z00.00 Encounter for general adult medical examination without abnormal findings
CPT/HCPCS: 80053; 80061; 83036; 84443; 85025

== ENCOUNTER 2025-05-21 09:36 | Emergency (ER) | payer MEDICAID, SELFPAY ==
[2025-05-21 09:44] VITALS: BP 143/125; PULSE 77; RESP 15; O2SAT 97
[2025-05-21 09:50] VITALS: BP 143/125; PULSE 77; RESP 15; O2SAT 97
--- NOTE | 2025-05-21 10:30 | DI.US_ITS ---
Exam(s) US HERNIA EXAM: US HERNIA CLINICAL HISTORY: L inguinal hernia. TECHNIQUE: Ultrasound was performed using standard protocol. COMPARISON: CT CT CHEST/ABD/PEL W from 02/06/2021 FINDINGS: Sonographic assessment utilizing grayscale and color Doppler imaging was performed and targeted to the area of clinical concern. In the left inguinal region, there is a small hernia evident with Valsalva which is measured at 1.3 cm in diameter. IMPRESSION: Small fat containing left inguinal hernia. DATA REPOSITORY:
[2025-05-21 11:03] VITALS: BP 134/83; PULSE 73; RESP 22; TEMP 35.8; O2SAT 97
--- NOTE | 2025-05-21 11:06 | W.ED.GENAD ---
Discharge Plan Disposition Patient Disposition: Home Condition: Stable Discharge Details Clinical Impression: Left inguinal hernia Primary Care Provider: Jr Tang ED Provider: Kong Arias Home Meds and New Rx's Prescriptions: No Action bisacodyl [Dulcolax (bisacodyl)] 5 mg tablet,delayed release (DR/EC) 5 mg PO ONCE Qty: 4 0RF Rx Instructions: take per colonoscopy instructions polyethylene glycol 3350 17 gram/dose powder 238 g PO ONCE Qty: 238 0RF Rx Instructions: take per colonoscopy instructions gabapentin 300 mg capsule 300 mg PO TID propranolol 60 mg capsule,extended release 24 hr 60 mg PO DAILY naproxen 500 mg tablet 500 mg PO BID PRN Discharge Instructions Instructions: Groin hernias Additional Instructions: You were seen in the emergency department for your inguinal hernia, there is no bowel contained within the hernia just pockets of belly fat, please continue with try to self reduce as it is likely to keep happening, I have placed you on the referral list for the surgical service who can discuss possible elective surgery to repair the hernia with you. Please return for any severe increase in pain, redness, significant bulging and lack of passing any gas or bowel movements. Stand Alone Forms: Portal Information Referrals: [facility] [Provider Group] Jr Tang [Primary Care Provider, Medicine] Discharge Data Discharge Date/Time-TO BE ENTERED AT DEPARTURE: 05/21/25 11:17 HPI General Date/Time Provider Initiated Documentation: 05/21/25 09:47. HPI Narrative: 59 year-old male presents to ED today by POV/ambulating with a chief complaint of possible hernia with onset noticed 3 months ago, usually it is reducible. Quality described as left lower abdominal and scrotal pain, no radiation to swelling, redness, constipation, nausea/vomiting, fever, chest pain, shortness of breath, dysuria. Severity is described as moderate. Palliating factors include nothing specific. Provoking factors include nothing specific. Patient not anticoagulated. Related Data Home Medications Medication Instructions Recorded Confirmed gabapentin 300 mg capsule 300 mg PO TID 02/05/25 02/28/25 naproxen 500 mg tablet 500 mg PO BID PRN 02/05/25 02/28/25 propranolol 60 mg capsule,24 60 mg PO DAILY 02/05/25 02/28/25 hr,extended release bisacodyl 5 mg tablet,delayed 5 mg PO ONCE colonscopy bowel prep 02/13/25 02/28/25 release (Dulcolax (bisacodyl)) #4 tabs polyethylene glycol 3350 17 238 g PO ONCE colonoscopy prep 02/13/25 02/28/25 gram/dose oral powder #238 grams Previous Rx's Medication Instructions Recorded bisacodyl 5 mg tablet,delayed 5 mg PO ONCE colonscopy bowel prep 02/13/25 release (Dulcolax (bisacodyl)) #4 tabs polyethylene glycol 3350 17 238 g PO ONCE colonoscopy prep 02/13/25 gram/dose oral powder #238 grams Allergies Allergy/AdvReac Type Severity Reaction Status Date / Time Gadolinium-Containing Allergy Severe Anaphylaxis Verified 05/21/25 09:51 Contrast Medi Sulfa (Sulfonamide Allergy Severe CAN'T Verified 05/21/25 09:51 Antibiotics) BREATHE codeine Allergy Mild RASH; GI Verified 05/21/25 09:51 UPSET acetaminophen AdvReac Intermediate anxiety Verified 05/21/25 09:51 gadopentetate dimeglumine AdvReac SEIZURE Verified 05/21/25 09:51 (From [facility]) General Stated Complaint: GenMedical MARTY: 3 Review of Systems All systems reviewed & are unremarkable except as noted in HPI and below Exam Narrative Exam Narrative: GENERAL APPEARANCE: Well-nourished, non-toxic, awake and alert, atraumatic, no acute distress. SKIN: Warm, pink, dry, intact, without rashes/lesions/ulcerations. HEAD: Normocephalic, atraumatic, normal hair distribution for gender/age. EYES: Normal conjunctiva, no exudates on lids/lashes. ENT: Nares patent, no circumoral cyanosis, no facial swelling NECK: Supple, trachea midline, painless cervical ROM. LUNGS/CHEST: Non-labored respirations, normal A/P diameter, symmetrical expansion, no chest wall deformity HEART (CV/PV): Regular rate, no peripheral edema, no JVD. ABDOMEN: Soft, non-distended, no guarding, no palpable bulge in the left scrotum and agreed arraigned, no palpable bulging, no LLQ tenderness MSK: Normal ROM, no swelling/deformity to bilateral UEs or LEs, moving all extremities without weakness, no cyanosis, spine midline without tenderness, normal curvature. NEURO: Mental Status AAOx4 - alert to person, place, time, events No facial droop, no forehead involvement. Motor: No focal weakness - strength 5/5 in bilateral UEs and LEs, proximal and distal, symmetric. Sensory: sensation intact to light touch globally. Gait normal: patient ambulated without ataxia into ED room. PSYCH: euthymic, cooperative, pleasant, appropriate speech Course Vital Signs Vital signs: Vital Signs Pulse 77 05/21/25 09:44 Respiratory Rate 15 05/21/25 09:44 Blood Pressure 143/125 H 05/21/25 09:44 Pulse Oximetry 97 05/21/25 09:44 Pulse 77 05/21/25 09:50 Respiratory Rate 15 05/21/25 09:50 Respiratory Effort Normal 05/21/25 10:59 Respiratory Depth Normal 05/21/25 10:59 Respiratory Pattern Normal 05/21/25 10:59 Blood Pressure 143/125 H 05/21/25 09:50 Blood Pressure Position Sitting 05/21/25 09:50 Pulse Oximetry 97 05/21/25 09:50 Oxygen Delivery Method Room Air 05/21/25 09:50 Oxygen Flow Rate 0 05/21/25 09:50 Pain Level 8 05/21/25 09:50 Medical Decision Making This dictation utilizes [id number] dictation software and may contain unedited grammatical errors. 59 year-old male presents to ED today by POV/ambulating with a chief complaint of possible hernia with onset noticed 3 months ago, usually it is reducible. Quality described as left lower abdominal and scrotal pain, no radiation to swelling, redness, constipation, nausea/vomiting, fever, chest pain, shortness of breath, dysuria. Severity is described as moderate. Palliating factors include nothing specific. Provoking factors include nothing specific. Patients' medical history: GERD, seizures, bipolar disorder, tobacco abuse, alcohol abuse, peripheral neuralgia, epididymitis 10 years ago. Family and social history: Noncontributory. Pertinent exam findings / vital signs include no palpable bulge at left inguinal ring, normal scrotum without swelling or erythema, no left lower quadrant abdominal hernia. Differential / pathologies of concern include inguinal hernia, abdominal wall muscle strain. Diagnostic studies of: - Ultrasound hernia -small fat-containing left inguinal hernia seen. Interventions of: - Placed in Trendelenburg and apply gentle pressure with subjective successful reduction per patient's symptoms ED Course/Assessment/Plan: 59-year-old male presents with acute on chronic hernia, has been self reducing hernia for months, cannot get it in this morning, I did place him into Trendelenburg with successful reduction according to the patient's pain level, the ultrasound shows no incarcerated bowel and no bowel involvement of the hernia, I counseled them on strict return criteria for any dysuria, pain or swelling in the scrotum, redness, complete constipation and lack of passing gas. Findings not consistent with incarcerated hernia, UTI, Luke's gangrene. Disposition of Left Inguinal Hernia. Patient verbalized understanding of the plan and return to ED criteria and engaged in shared decision making. Medical Records Medical records reviewed: Yes I reviewed the patient's medical records. Imaging Data Radiologic Study: Attestation: I personally reviewed and interpreted this imaging study as follows: Imaging: Ultrasound Radiologist's impression: EXAM: US HERNIA CLINICAL HISTORY: L inguinal hernia. TECHNIQUE: Ultrasound was performed using standard protocol. COMPARISON: CT CT CHEST/ABD/PEL W from 02/06/2021 FINDINGS: Sonographic assessment utilizing grayscale and color Doppler imaging was performed and targeted to the area of clinical concern. In the left inguinal region, there is a small hernia evident with Valsalva which is measured at 1.3 cm in diameter. IMPRESSION: Small fat containing left inguinal hernia. Lab Data Lab results reviewed: Yes I reviewed the patient's lab results. PFSH All Active Problems (Updated 05/21/25 @ 11:08 by BASSAM Garcia) Left inguinal hernia (Acute) Encounter for colonoscopy due to history of adenomatous colonic polyps (Acute) Degenerative disc disease (Acute) Tobacco abuse (Acute) Alcohol abuse (Chronic) DELIA (obstructive sleep apnea) (Chronic) Atherosclerosis (Acute) Tubular adenoma of colon (Acute 09/12/17) Temporomandibular joint disorder (Acute 09/26/17) Spells of decreased attentiveness (Acute 11/12/14) Smoker (Acute) Peripheral neuralgia (Acute) Migraine headache without aura (Acute 11/12/14) Mass of pineal region (Acute 11/12/14) Low back pain (Acute) GERD (gastroesophageal reflux disease) (Acute 01/31/15) Epididymitis, right (Acute 07/28/16) Chronic migraine (Acute 11/12/14) Attention deficit hyperactivity disorder (Acute) Spondylosis of lumbar region without myelopathy or radiculopathy (Chronic) Fracture of tibia AND fibula (Acute 04/10/13) ORIF by Dr. Gaviria 04-10-2013 Medical History Opioid abuse GERD (gastroesophageal reflux disease) Excoriated acne Seizures Leg cramp Migraine, intractable Bipolar disorder Anxiety disorder Constipation, chronic SOB (shortness of breath) Convulsions Surgical History Tonsillectomy and adenoidectomy Colonoscopy - MAC (09/12/17) Social History Smoking/Tobacco Use Status: Current every day Tobacco Type: cigarettes Smoking risk assessment performed?: Yes Alcohol Intake: current Alcohol Intake frequency: 3 or more drinks per day Alcohol type: beer Drug use: Daily Substance use type: marijuana Housing: house Do you feel safe at home: Yes PAWSS Have you Been Recently Intoxicated or Drunk Within the Last 30 days?: No Have you Ever Experienced Previous Episodes of Alcohol Withdrawal?: No Have you ever Experienced Withdrawal Seizures?: No Have you ever Experienced Delirium Tremens(DT)s?: No Have you ever undergone Alcohol Rehabilitation Treatment (i.e, inpt ot outpatient treatment programs)?: No Have you ever Experienced Blackouts?: No Have you ever Combined Alcohol with other Downers within the last 90 days?: No Have you ever Combined Alcohol with any other Substance of Abuse during the last 90 days?: No Result: 0
[2025-05-21 11:16] VITALS: BP 134/83; PULSE 73; RESP 22; TEMP 35.8; O2SAT 97
--- NOTE | 2025-05-28 16:53 | NUR.NOTE ---
Nursing Note: The patient called looking for his US results from his last visit. I read him the report stating that it did conform he does have a small hernia. He reported that it has gotten bigger. I told him that if he is in a lot of pain, he could always come back and our providers could attempt to reduce it again. He is going to contact his PCP first thing in the morning concerning the findings and next steps for treatment. If he finds that he is in too much pain, he will return to the ED.
== END 2025-05-21 11:17 | disposition home or self-care (01) ==
PROVIDERS: Emergency Provider Physician Assistant; PCP Family Medicine
DX: K40.90 Unilateral inguinal hernia, without obstruction or gangrene, not specified as recurrent (principal)
CPT/HCPCS: 99283; 99284; 76857

== ENCOUNTER 2025-06-25 05:59 | Day surgery (SDC) | payer MEDICAID, SELFPAY ==
--- NOTE | 2025-06-24 18:53 | W.ANESPRE ---
General Info Date of Service Date Performed: 06/25/25 Height: 5 ft 10 in Weight: 89.414 kg Body Mass Index (BMI): 28.3 Surgical Procedure: Operation Date: 06/25/25 07:40 Proposed Procedure Side Surgeon p Open left inguinal hernia repair with mesh Left Luis Martinez MD Meds Allergies and Home Medications Allergies Allergy/AdvReac Type Severity Reaction Status Date / Time Gadolinium-Containing Allergy Severe Anaphylaxis Verified 06/25/25 06:12 Contrast Medi Sulfa (Sulfonamide Allergy Severe CAN'T Verified 06/25/25 06:12 Antibiotics) BREATHE codeine Allergy Mild RASH; GI Verified 06/25/25 06:12 UPSET acetaminophen AdvReac Intermediate anxiety Verified 06/25/25 06:12 gadopentetate dimeglumine AdvReac SEIZURE Verified 06/25/25 06:12 ([facility] Home Medication ?Medication ?Instructions ?Recorded naproxen 500 mg tablet 500 mg PO BID PRN 02/05/25 propranolol 60 mg capsule,24 60 mg PO DAILY 02/05/25 hr,extended release albuterol sulfate 90 mcg/actuation 2 puff inhalation Q6H PRN 06/10/25 aerosol inhaler (Ventolin HFA) cyanocobalamin (vitamin B-12) 1,000 mcg PO DAILY 06/10/25 1,000 mcg capsule divalproex 250 mg tablet,extended 250 mg PO QHS 06/10/25 release 24 hr folic acid 1 mg tablet 1 mg PO DAILY 06/10/25 trazodone 50 mg tablet 100 mg PO QHS 06/10/25 Current Visit Medications: Current Medications Generic Name Dose Route Start Last Admin Trade Name Brielle PRN Reason Stop Dose Admin Acetaminophen 1,000 mg 06/25/25 06:00 Acetaminophen 500 Mg Tab PO 06/25/25 23:59 PREOP DESTINEE Celecoxib 200 mg 06/25/25 06:00 Celecoxib 200 Mg Cap PO 06/25/25 23:59 PREOP DESTINEE Gabapentin 600 mg 06/25/25 06:00 Gabapentin 300 Mg Cap PO 06/25/25 23:59 PREOP DESTINEE Ringer's Solution 1,000 mls @ 80 mls/hr 06/25/25 06:00 IV 06/25/25 23:59 INFUSION DESTINEE Cefazolin Sodium/Dextrose 2 gm in 50 mls @ 100 mls/hr 06/25/25 06:00 Ancef Duplex IVPB 06/25/25 23:59 PREOP DESTINEE Sodium Chloride 0 ml 06/25/25 06:00 Normal Saline Flush 10 Ml Syr IV 06/25/25 23:59 PRN PRN Sodium Chloride 0 ml 06/25/25 06:00 Normal Saline 10 Ml Vial IJ 06/25/25 23:59 DIRECTED PRN Sterile Water 0 ml 06/25/25 06:00 Water,Injection,Sterile 10 Ml Vial IJ 06/25/25 23:59 DIRECTED PRN PFSH Active Problems Active Problems: Problem Status Onset Code Encounter for colonoscopy due to history of adenomatous colonic polyps Acute Z12.11, Z86.0101 Degenerative disc disease Acute DELIA (obstructive sleep apnea) Chronic G47.33 Atherosclerosis Acute I70.90 Tubular adenoma of colon Acute 09/12/17 D12.6 Temporomandibular joint disorder Acute 09/26/17 M26.609 Spells of decreased attentiveness Acute 11/12/14 R68.89 Smoker Acute F17.200 Peripheral neuralgia Acute M79.2 Migraine headache without aura Acute 11/12/14 G43.009 Mass of pineal region Acute 11/12/14 G93.9 Low back pain Acute M54.5 GERD (gastroesophageal reflux disease) Acute 01/31/15 K21.9 Epididymitis, right Acute 01/29/16 N45.1 Chronic migraine Acute 11/12/14 G43.709 Attention deficit hyperactivity disorder Acute F90.9 Tobacco abuse Acute Alcohol abuse Chronic Spondylosis of lumbar region without myelopathy or radiculopathy Chronic M47.816 Fracture of tibia AND fibula Acute 04/10/13 S82.209A, S82.409A Medical History Medical History Opioid abuse GERD (gastroesophageal reflux disease) Excoriated acne Seizures Last seizures 03/2025-pt. states he drops to the floor paralyzed mentally with it but cannot move. Pt. states he see's neurologist Dr. Patton last visit was 2023 Leg cramp Migraine, intractable Bipolar disorder Anxiety disorder Constipation, chronic SOB (shortness of breath) Convulsions Surgical History Surgical History Tonsillectomy and adenoidectomy Colonoscopy - MAC (09/12/17) Tobacco Smoking/Tobacco Use Status: Current every day Tobacco Type: cigarettes Smoking cigarettes per day: 10 Alcohol Alcohol Intake: current Alcohol intake frequency: 3 or more drinks per day Alcohol type: beer Substance Use Substance use: Daily Substance use type: marijuana Vital Signs and Lab Results Vital Signs Most Recent Vital Signs in EMR: Temp Pulse Resp BP Pulse Ox 36.6 C 61 18 105/69 95 06/25/25 06:28 06/25/25 06:28 06/25/25 06:28 06/25/25 06:28 06/25/25 06:28 Anesthesia Assessment and Plan Anesthesia History Personal History: No History of Anesthesia Complications Family History: Other Exercise Tolerance Exercise Tolerance: Metabolic Equivalents>4 Cardiac & Pulmonary Exam Cardiac Exam: Normal S1/S2 Heart Sounds Pulmonary Exam: Clear Bilateral Breath Sounds Implantable Cardiac Device Does patient have a Pacemaker or an ICD?: No Airway Exam Known Difficult Airway: No Mallampati Class: 3 Mouth Opening: Normal (> 3cm) Thyromental Distance: Greater than 3 cm Neck Range of Motion: Limited ROM Neck Circumference: Normal Teeth Condition: Normal Dentition ASA Classification ASA Score: ASA 2 Emergency Case?: No NPO Status NPO Status: NPO Clears >2 hours, Solids >8 hours Anesthesia Plan Resuscitation Status: Full Code Anesthesia Technique: General Anesthesia Airway Planned: LMA Pain Management: Surgeon and patient request nerve block Monitors Used: Standard Monitors Preoperative Comments:: 59 yo for hernia repair. Sig PMHx: HTN, DELIA, GERD (not anymore, was diet related), peripheral neuralgia, LBP, PNES, bipolar/anxiety, pineal gland cyst. Daily smoker, (1/2 ppd) EtOH (3+ a day), and cannabis. Previous opioid abuse, amphetamine use. PFT: mild obstruction. Previous Anes: - colo, prop/midaz, natural airway, no issues.
--- NOTE | 2025-06-24 19:32 | W.PM.DSUDISC ---
Date of service: 06/25/25 Discharge Plan Disposition Patient Disposition: Home Condition: Good Discharge Details Reason For Visit: open left inguinal hernia repair Attending Provider: Luis Martinez Primary Care Provider: Jr Tang Home Meds and New Rx's Prescriptions: New tramadol 50 mg tablet 50 mg PO Q8H PRNQty: 9 0RF Rx Instructions: Take 1 tablet by mouth up to every 8 hours if needed for severe pain. Continued albuterol sulfate [Ventolin HFA] 90 mcg/actuation HFA aerosol inhaler 2 puff inhalation Q6H PRN trazodone 50 mg tablet 100 mg PO QHS folic acid 1 mg tablet 1 mg PO DAILY divalproex 250 mg tablet extended release 24 hr 250 mg PO QHS cyanocobalamin (vitamin B-12) 1,000 mcg capsule 1,000 mcg PO DAILY propranolol 60 mg capsule,extended release 24 hr 60 mg PO DAILY naproxen 500 mg tablet 500 mg PO BID PRN Discontinued bisacodyl [Dulcolax (bisacodyl)] 5 mg tablet,delayed release (DR/EC) 5 mg PO ONCE Qty: 4 0RF Rx Instructions: take per colonoscopy instructions polyethylene glycol 3350 17 gram/dose powder 238 g PO ONCE Qty: 238 0RF Rx Instructions: take per colonoscopy instructions Discharge Instructions Instructions: Groin Hernia Repair, Open Surgery Additional Instructions: Antoine, was great seeing you today, and I hope you have a quick and uneventful recovery as you transition home. Things went very smoothly. We were able to get the hernia reduced back to its normal position, and patch everything up with the mesh as we discussed beforehand. Expect to be fairly sore over the next few days. I would also anticipate some bruising over the groin, that may even extend down into the scrotum. That is extremely common and nothing to worry about. As I mentioned, you should be up and walking around a little bit each day. Getting some basic exercise will help facilitate your recovery. Avoid any heavy lifting until we see each other in the office. And when you are resting, it is probably smart to lay relatively flat, or even keep your hips up on a pillow a little bit to help reduce swelling. I would also keep a pillow nearby to help push on the incision if you notice that you are coughing and sneezing. If you need anything at all or have any questions, please do not hesitate to call. Otherwise, I look forward to seeing you in the office. 1. Resume all of your regular medications. 2. Use ice packs over the incision to help with pain and swelling. 3. Alternate over the counter tylenol and ibuprofen for the first 2 days, then use as needed Use the prescription for tramadol if needed for more severe pain. 4. Leave bandage in place for 24 hours, then remove. 5. Shower with warm soapy water. Pat dry. Replace the bandaid if you find that more comfortable. 6. No soaking or tub baths until I see you in the office. 7. No heavy lifting until I see you in the office. 8 .Call the office (or go directly to the emergency room after hours) if you notice any of the following: Develop chills (warm to touch), or if you have a thermometer and your temperature is above 101 Difficulty breathing or difficultly swallowing Persistent vomiting Any bleeding ? exceeding one tablespoon 9. Call your physician if the site where your intravenous was started becomes red, swollen, painful, and warm to touch. Stand Alone Forms: Anesthesia Discharge Inst., Rick Wells (DSU), Portal Information Referrals: Luis Martinez MD [ [facility] STAFF PHYSICIAN, Surgery] - 07/08/25 10:00 am Activity:: no heavy lifting Remove Dressings/Wound Care:: 24 hours Shower/Bathe:: 24 hours Diet:: As Tolerated Discharge Orders Discharge Orders: Discharge Order (Routine); Ordered 06/24/25 Ordered By: Luis Martinez DS: Diagnosis Discharge Diagnosis (1) Left inguinal hernia: Status: Inactive Asessment and Plan: Outpatient postoperative follow-up
--- NOTE | 2025-06-24 19:37 | ROE_ITS ---
Operative Note Operative Note PRE-OP DIAGNOSIS: Left inguinal hernia PROCEDURE: open lfet inguinal hernia repair with mesh SURGEON: Luis Martinez PHYSICIAN GENERAL INTERNAL MEDICINE: Ashley Wild ANESTHESIA TYPE: Local By Surgeon and General LMA/ETT Refer to Anesthesia Record ESTIMATED BLOOD LOSS: 25 PATHOLOGY: none sent COMPLICATIONS: None Patient was transported to: PACU Patient's condition: stable Implants: Bard PerFix light plug and patch medium Indications: Antoine is a 59-year-old male with symptomatic left inguinal hernia Findings: Indirect left inguinal hernia Procedure Description: I met with Antoine in the preoperative area, we reviewed the plan for surgery. We marked the site together. We then moved back to the operating room, and he was assisted onto the OR table. He was padded and supported appropriately. Next, after induction of general anesthesia, the anesthesia service provided a real- time ultrasound-guided left inguinal tap block. The surgical site was then prepped and draped in the usual fashion. I began by making an oblique incision over the left inguinal region. I dissected down through the skin to the deep fascia. Next, I incised the fascia along the length of the inguinal canal to the external ring. I then carefully identified the ilioinguinal nerve and d ivided. Once this was complete, I bluntly dissected the shelving edge of the inguinal ligament down towards the pubic tubercle. Here, I encircled all cord structures with a Stratford drain. Next, I began dissecting the specific cord structures. Great care was taken to spare the vas deferens and the blood supply to the testicle. Next, I isolated the hernia sac from the other inguinal structures. I reduced it back to its normal anatomic position. This is an indirect inguinal hernia. I then used a medium mesh plug to obliterate the defect at the internal ring. I fixed in place with interrupted Prolene stitches. Next, I buttressed the posterior floor of the inguinal canal with a large mesh patch. I started by fixing it to the pubic tubercle. Next, I used Prolene sutures to affix it to the shelving edge of the inguinal ligament and the conjoined tendon. Laterally I tacked it to the internal oblique and reconstructed an internal ring without any strain on the cord structures. Once this was complete, I irrigated the surgical field. It appeared hemostatic. I then closed the anterior portion of the fascia to reconstruct the front wall of the inguinal canal. I did this with interrupted Vicryl stitches. Once again, I irrigated the surgical field and inspected for hemostasis. Finally, I approximated the superficial fascia and the deep layers of the skin with absorbable suture. Skin was closed with running subcuticular stitches.. Bandages were applied, the patient was awakened and transferred to the recovery unit. Date of Procedure: 06/25/25
[2025-06-25] VITALS (16 sets, daily range): BP systolic 102–150; BP diastolic 61–87; PULSE 45–69; RESP 11–19; TEMP 36.2–36.6; O2SAT 94–100; BMI 28.3
[2025-06-25] MEDS: Celecoxib 200 MG CAP PO (06:16)
[2025-06-25] MEDS: Gabapentin 300 MG CAP 600 MG PO (06:16)
[2025-06-25] MEDS: Lactated Ringers 1,000 ML 80 ML IV (06:44)
[2025-06-25] MEDS: ceFAZolin 2 GM/50 ML BAG IVPB (07:25)
--- NOTE | 2025-06-25 07:51 | W.ANESNERVE ---
Nerve Block Single Injection Procedure Date and Time Date Performed: 06/25/25 Procedure Start: 07:37 Location Where Procedure Performed Procedure Location: Operating Room Procedure Stop: 07:40 Reason Performed: Postoperative Analgesia Requesting Provider: Luis Martinez Timeout Performed Timeout Performed: Yes Monitoring Used ECG, Blood Pressure, SpO2 and ETCO2 Sterility Sterility: Hand Hygiene, Surgical Cap, Surgical Mask, Sterile Gloves and Chlorhexidine Sedation Given During Procedure Sedation Given (Indicate Dose Given): No Sedation given Patient Mental Status Patient Mental Status: Performed under general anesthesia Nerve Block 1st Nerve Block: Laterality: Left Block Type: TAP Unilateral Ultrasound Image Saved?: Yes Needle / Catheter Used: 100mm SonoPlex II Local Anesthetic Bolus (Indicate Dose Given): Injected in 3-5ml increments after negative blood aspiration and Bupivacaine 0.375% Dose:: 7 mL Additives (Indicate Dose Given): None Ultrasound: Sterile probe cover and gel used Nerve Stimulator: Not Used Paresthesia: None Procedure Tolerated: No Complications Procedure Outcome: Successful Performed By: Msua Harvey
[2025-06-25] MEDS: Bupivacaine 0.5% Pres-Free W/EPI 30 ML VIAL (07:54)
--- NOTE | 2025-06-25 08:54 | W.ANESPOSTOP ---
Postoperative Evaluation Date, Time and Location Date Performed: 06/25/25 Time Performed: 08:54 Patient Location: PACU Vital Signs Most Recent Imported Vital Signs: Most Recent Vital Signs Temp Pulse Resp BP Pulse Ox 36.6 C 61 18 105/69 95 06/25/25 06:28 06/25/25 06:28 06/25/25 06:28 06/25/25 06:28 06/25/25 06:28 Pain Score Most Recent Pain Score: Most Recent Pain Score Pain Level 0 06/25/25 06:28 Assessment Mental Status: Awake (Alert & Oriented to Patient Baseline) Airway and Respiratory Function: Patent airway with normal (patient baseline) respiratory exam Cardiovascular Function: Hemodynamically Stable Hydration Status: Adequately Hydrated Nausea & Vomiting: No Nausea or Vomiting Pain: Pain is tolerable per patient Peripheral Nerve Block: Regional nerve block not resolved at time of post operative discharge
== END 2025-06-25 10:25 | disposition home or self-care (01) ==
LOC: SUR 06:00
PROVIDERS: PCP Family Medicine; Visit Provider Surgery
PROC: (CPT 49505; principal; 2025-06-25 07:30)
DX: K40.90 Unilateral inguinal hernia, without obstruction or gangrene, not specified as recurrent (principal); G89.18 Other acute postprocedural pain; G47.33 Obstructive sleep apnea (adult) (pediatric); F17.210 Nicotine dependence, cigarettes, uncomplicated
CPT/HCPCS: 49505; 64486; C1781; J0131; J0665; J0690; J1100; J2371; J2405; J2704; J3475